=== PATIENT | male | born 1990 | race Caucasian/White ===

== ENCOUNTER 2020-08-15 11:27 | Emergency (ER) | payer MEDICAID ==
[~2020-08-15] VITALS: Ht 182.9 cm; Wt 122.5 kg
[2020-08-15 11:45] VITALS: BP_SYST 143
[2020-08-15 12:10] LABS: BILIRUBIN,URINE NEGATIVE (NEGATIVE); BLOOD, URINE NEGATIVE (NEGATIVE); CLARITY/URINE CLEAR (CLEAR); COLOR,URINE YELLOW (YELLOW); GLUCOSE,URINE NEGATIVE (NEGATIVE); KETONES,URINE NEGATIVE (NEGATIVE); LEUKOCYTE ESTERASE ,URINE NEGATIVE (NEGATIVE); NITRITE, URINE NEGATIVE (NEGATIVE); PH,URINE 6.5 (5.0-8.0); PROTEIN URINE NEGATIVE (NEGATIVE); UROBILINOGEN,URINE 0.2 (0.2-1.0)
[2020-08-15 12:48] VITALS: BP_SYST 136
== END 2020-08-15 12:48 | disposition home or self-care (01) ==
LOC: SED 11:27
DX: R10.9 Unspecified abdominal pain (principal)
CPT/HCPCS: 71045; 81003; 99284

== ENCOUNTER 2022-04-03 08:21 | Emergency (ER) | payer MEDICAID ==
[~2022-04-03] VITALS: Ht 182.9 cm; Wt 100.7 kg
[2022-04-03 08:28] VITALS: BP_SYST 132
[2022-04-03 08:59] LABS: BASOPHILS % (AUTO) 0.4 % (0.0-2.0); EOSINOPHILS # (AUTO) 0.5 K/uL (0.0-0.4); EOSINOPHILS % (AUTO) 7.3 % (0.0-4.0); HEMATOCRIT 44.8 % (36-54); LYMPHOCYTES # (AUTO) 1.6 K/uL (1.0-5.5); LYMPHOCYTES % (AUTO) 21.8 % (20.5-51.5); MEAN CORPUSCULAR VOLUME 81 fL (79.0-98.0); MONOCYTES # (AUTO) 0.6 K/uL (0.0-1.0); MONOCYTES % (AUTO) 8.1 % (1.7-9.3); NEUTROPHILS # (AUTO) 4.5 K/uL (1.8-7.7); NEUTROPHILS % (AUTO) 62.4 % (40.0-70.0); PLATELET COUNT (AUTO) 309 K/uL (130-430); RED BLOOD CELL COUNT(AUTO) 5.53 MIL/uL (4.2-6.2); RED CELL DISTRIBUTION WIDTH 13.9 % (9.0-15.0); WHITE BLOOD COUNT (AUTO) 7.2 K/uL (4.8-10.8)
[2022-04-03 09:36] LABS: CALCIUM 8.9 mg/dL (8.4-11.0); CREATININE 0.84 mg/dL (0.55-1.30); POTASSIUM 3.9 mmol/L (3.5-5.1)
[2022-04-03 09:41] LABS: ALBUMIN 3.6 g/dL (3.4-4.8); TOTAL BILIRUBIN 0.4 mg/dL (0.0-1.0)
--- NOTE | 2022-04-03 09:50 | NUR ---
PT TO BED 5, REPORT TO ENRIQUE JEAN. SIDE RAILS UP. PENDING MD ASSESS AND FURTHER ORDERS. VSS. NAD NOTED. AAOX4. AMBULATORY.
--- NOTE | 2022-04-03 10:00 | NUR ---
Pt came in c/o constipation times 5 days. States no medical hx. Patient is A&Ox4, calm and cooperative. No signs of distress. Will continue to monitor pending med eval and provide care as ordered.
--- NOTE | 2022-04-03 10:14 | NUR ---
ER Dr. Case at bedside examining patient.
[2022-04-03] MEDS ORDERED: LOPE2CAP PO (10:40)
--- NOTE | 2022-04-03 11:18 | NUR ---
Patient given written and verbal discharge instructions and verbalizes understanding. ER Dr. Manpreet URBINA discussed with patient the results and treatment provided. Patient in stable condition. ID arm band removed. IV catheter removed intact and dressing applied, no active bleeding. Rx of loperamide given. Patient educated on pain management and to follow up with PMD. Pain Scale 4/10. Opportunity for questions provided and answered. Medication side effect fact sheet provided.
== END 2022-04-03 11:14 | disposition home or self-care (01) ==
LOC: SED 08:21
DX: R19.7 Diarrhea, unspecified (principal); L40.9 Psoriasis, unspecified; R11.0 Nausea; Z79.899 Other long term (current) drug therapy
CPT/HCPCS: 36415; 80053; 85025; 99283